=== PATIENT | male | born 1980 | race Caucasian/White ===

== ENCOUNTER 2018-01-22 21:39 | Emergency (ER) | payer SELFPAY ==
[~2018-01-22] VITALS: Ht 167.6 cm; Wt 65.0 kg
[2018-01-22 21:45] VITALS: BP 152/88; PULSE 81; RESP 18; TEMP 99; O2SAT 99
[2018-01-22] MEDS ORDERED: LIDOCAINE 1%/EPINEPHrine 1:100,000 SOLN 20 ML VIAL INFIL ONE (22:15)
[2018-01-22] MEDS ORDERED: CLINDAMYCIN 150 MG CAP PO ONE (22:15)
[2018-01-22] MEDS ORDERED: CLIN150C14 PO (22:24)
--- NOTE | 2018-01-22 22:26 | PD ---
HPI Chief Complaint: Skin Problem Time Seen by Provider: 22:02 Travel History International Travel<30 days: No Contact w/Intl Traveler<30days: No Traveled to known affect area: No History of Present Illness HPI The patient is 29 years old and has had swelling in the right leg associated with pain and redness. He believes it might have been a spider bite or insect bite having led to an abscess. He reports chills. No fever. Duration 3 days. Similar process occurred many years ago involving the face. Timing constant. Onset gradual. PFSH Past Medical History Medical History: Denies Significant Hx Diminished Hearing: Yes (deaf right ear) Tetanus Vaccination: < 5 Years Influenza Vaccination: No Past Surgical History Eye Surgery: Yes Other Surgery: Yes (right carpal tunnel) Social History Alcohol Use: No Tobacco Use: Yes Substance Use: No Allergies-Medications (Allergen,Severity, Reaction): Coded Allergies: Penicillins (Verified Allergy, Severe, 01/22/18) as a child Sulfa (Sulfonamide Antibiotics) (Verified Allergy, Severe, 01/22/18) as a child amoxicillin (Verified Allergy, Severe, 01/22/18) as a child clavulanic acid (Verified Allergy, Severe, 01/22/18) as a child erythromycin base (Verified Allergy, Severe, 01/22/18) as a child Review of Systems Except as stated in HPI: all other systems reviewed are Neg General / Constitutional: No: Fever Physical Exam Narrative GENERAL: Well-nourished well-developed 37-year-old male SKIN: Warm and dry. On the medial aspect of the distal left thigh there is a 4 cm area of induration with minimal central fluctuance concerning for abscess. More medially and about the same area there is a 2 cm cellulitic process with trace fluctuant. HEAD: Atraumatic. Normocephalic. EYES: Pupils equal and round. No scleral icterus. No injection or drainage. ENT: No nasal bleeding or discharge. Mucous membranes pink and moist. NECK: Trachea midline. No JVD. CARDIOVASCULAR: Regular rate and rhythm. Data Data Last Documented VS Vital Signs Date Time Temp Pulse Resp B/P (MAP) Pulse Ox O2 Delivery O2 Flow Rate FiO2 01/22/18 21:45 99.0 81 18 152/88 (109) 99 Orders Orders Lidocai-Epi 1%-1:100,000 Inj (Xylocaine- (01/22/18 22:15) Clindamycin (Cleocin) (01/22/18 22:15) MDM Medical Decision Making Medical Screen Exam Complete: Yes Emergency Medical Condition: Yes Medical Record Reviewed: Yes Differential Diagnosis Cellulitis, abscess, synovial cyst Narrative Course Abscesses drained. The more medial and larger abscess drained almost no pus raising concern for a severe cellulitis. Clindamycin prescription and return precautions were discussed in detail. Patient verbalized understanding. Procedures Procedure Narrative After the risks and benefits were discussed the following procedure was performed: INCISION AND DRAINAGE OF ABSCESS: The area was prepped and was sterilely draped. A subcutaneous wheal of1 % Xylocaine with a total number 2mL was used to anesthetize the area. The area was properly anesthetized. A [id number] was used to make a 1 cm incision across the area of the abscess. Cultures were obtained. The abscess was drained an irrigated with normal saline. Quarter inch iodoform packing was placed in the wound. Sterile dressing applied. Patient advised to have packing removed in two days. After the risks and benefits were discussed the following procedure was performed: INCISION AND DRAINAGE OF ABSCESS: The area was prepped and was sterilely draped. A subcutaneous wheal of [1% Xylocaine with a total number1 mL was used to anesthetize the area. The area was properly anesthetized. A number 11 scalpel was used to make a 1 -cm incision across the area of the abscess. Cultures were obtained. The abscess was drained an irrigated with normal saline. Quarter inch iodoform packing was placed in the wound. Sterile dressing applied. Patient advised to have packing removed in two days. Diagnosis Primary Impression: Cellulitis and abscess of lower extremity Referrals: Primary Care Physician call for appointment Med/Other Pt SpecificInfo: Prescription(s) given Scripts Clindamycin (Clindamycin) 150 Mg Cap 450 MG PO Q8H for Infection for 10 Days, #90 CAP 0 Refills Prov: Yasir Lemus MD 01/22/18 Disposition: 01 DISCHARGE HOME Condition: Stable Yasir Lemus MD January 22, 2018 22:26
== END 2018-01-22 22:39 | disposition home or self-care (01) ==
LOC: NEPC 21:39
DX: L03.119 Cellulitis of unspecified part of limb (principal); Z72.0 Tobacco use; Z88.2 Allergy status to sulfonamides; Z88.0 Allergy status to penicillin; Z88.1 Allergy status to other antibiotic agents
CPT/HCPCS: 10061